=== PATIENT | female | born 1985 | race Caucasian/White ===

== ENCOUNTER 2024-01-23 17:47 | Emergency (ER) | payer BC, SELFPAY ==
--- NOTE | ~2024-01-23 | XR_ITS ---
EXAMINATION: XR chest 2V Exam Date/Time: 01/23/2024 18:20 CDT HISTORY: cough, congestion X weeks Comparison: None. RESULT: Lines, tubes, and devices: None. Lungs and pleura: Clear. Cardiomediastinal silhouette: Normal. Other: No acute osseous or upper abdominal finding. IMPRESSION: No acute cardiopulmonary process. Reviewed, dictated and finalized at location K.
[2024-01-23 17:55] VITALS: BP 130/71; PULSE 85; RESP 20; TEMP 36.6; O2SAT 99
[2024-01-23 18:43] LABS: Influenza A QL RT-PCR Negative (Negative); Influenza B QL RT-PCR Negative (Negative); RSV RNA, RT-PCR Negative (Negative); SARS-CoV-2 RNA PCR Negative (Negative)
--- NOTE | 2024-01-23 19:18 | ED.URI ---
HPI - URI/Sore Throat General Chief Complaint: Upper Respiratory Infection Stated Complaint: UPPER RESP Time Seen by Provider: 01/23/24 18:08 Source: patient Mode of arrival: ambulatory Limitations: no limitations History of Present Illness HPI Narrative: Patient is a 39-year-old female who presents the ED with report of URI sx's. Patient reports having persistent symptoms over the last 2-3 weeks, including persistent dry cough, intermittent fevers, congestion, right lower rib pain with coughing. Son has had similar symptoms. Patient has been taking [id number] medications without much relief. Was seen by an urgent care and diagnosed with viral infection, prescribed promethazine for cough. Patient denies recent fever, denies shortness of breath, chest pain, nausea, vomiting. Related Data Allergies Allergy/AdvReac Type Severity Reaction Status Date / Time No Known Allergies Allergy Verified 01/23/24 17:59 Review of Systems Review of Systems: CONSTITUTIONAL: See HPI. ENT: See HPI. CARDIOVASCULAR: Denies chest pain, palpitations, or edema. RESPIRATORY: See HPI. GASTROINTESTINAL: Denies abdominal pain, nausea, vomiting, or diarrhea. MUSCULOSKELETAL: See HPI. All systems reviewed & are unremarkable except as noted in HPI and below Exam Narrative: GENERAL: Well appearing, well-nourished, non-toxic, in no acute distress. HEAD: Normocephalic, atraumatic. RESPIRATORY: Airway patent, respirations nonlabored. Clear to auscultation bilaterally, no rales, rhonchi, wheezing. frequent coughing on exam. No significant focal lung sounds. CARDIOVASCULAR: Regular rate and rhythm without murmurs, rubs, or gallops. MUSCULOSKELETAL: Moves all extremities. No gross deformities. No lower extremity edema. SKIN: Warm, dry, normal color. NEURO: A&O X3. Speech clear. PSYCHIATRIC: Appropriate mood and affect. Normal interaction. Course Vital Signs Vital signs: Vital Signs Temperature 98 F 01/23/24 17:55 Pulse Rate 85 01/23/24 17:55 Respiratory Rate 01/23/24 17:55 Blood Pressure 130/71 01/23/24 17:55 Pulse Oximetry 99 01/23/24 17:55 Temperature 98 F 01/23/24 17:55 Pulse Rate 85 01/23/24 17:55 Respiratory Rate 01/23/24 17:55 Blood Pressure 130/71 01/23/24 17:55 Pulse Oximetry 99 01/23/24 17:55 Oxygen Delivery Room Air 01/23/24 17:58 MDM - URI/Sore Throat MDM Narrative Medical decision making narrative: Patient presented to ED with several week history of URI symptoms. Vital signs are stable upon arrival. Patient is afebrile. Viral swabs are negative here. Chest x-ray is clear. Discussed likelihood of viral URI, however given prolonged nature of symptoms, secondary worsening, will cover for bacterial process with abx/steroid pack. will prescribe Tessalon Perles. Advised patient to have follow-up with primary care doctor for further evaluation. Advised to continue [id number] therapies. Given strict return precautions. She agrees with plan. Discharged in stable condition. Medical Records Attestation: I reviewed the patient's medical records. Lab Data Attestation: I reviewed the patient's lab results. Labs: Lab Results 01/23/24 Range/Units 18:01 Influenza A (RT-PCR) Negative (Negative) Influenza B (RT-PCR) Negative (Negative) RSV (RT-PCR) Negative (Negative) SARS-CoV-2 RNA (RT-PCR) Negative (Negative) Imaging Data Attestation: I personally reviewed and interpreted this imaging study as follows: Radiologist's impression: ITS Impressions Chest X-Ray 01/23/24 18:45 IMPRESSION: No acute cardiopulmonary process. Discharge Plan Discharge Clinical Impression: Bronchitis Upper respiratory infection Qualifiers: URI type: unspecified URI Qualified Code(s): J06.9 - Acute upper respiratory infection, unspecified Patient Disposition: Home, Self-Care Condition: Stable Instructions: Antib
== END 2024-01-23 19:41 | disposition home or self-care (01) ==
PROVIDERS: Emergency Provider Physician Assistant
DX: J40 Bronchitis, not specified as acute or chronic (principal); J06.9 Acute upper respiratory infection, unspecified; Z20.822 Contact with and (suspected) exposure to COVID-19
CPT/HCPCS: 71046; 87637; 99283